=== PATIENT | female | born 1990 | race Two or more races ===

== ENCOUNTER 2016-10-09 08:54 | Emergency (ER) | payer OTHER ==
[~2016-10-09] VITALS: Ht 167.6 cm; Wt 54.4 kg
[~2016-10-09 08:54] MED LIST: ALBU2.5V38 IH; ALBU8.5H8 IH
--- NOTE | 2016-10-09 09:12 | NUR ---
DR CORADO AT THE BEDSIDED FOR EVAL AND EXAM.
[2016-10-09 09:22] VITALS: BP 119/71
--- NOTE | 2016-10-09 09:22 | NUR ---
Patient discharged to home in stable conditon. Written and verbal after care instructions given. Patient verbalizes understanding of instructions.
== END 2016-10-09 09:22 | disposition home or self-care (01) ==
LOC: ER 08:54
DX: H00.011 Hordeolum externum right upper eyelid (principal); J45.909 Unspecified asthma, uncomplicated
CPT/HCPCS: A4663